=== PATIENT | female | born 1945 | race Caucasian/White ===

== ENCOUNTER → 2018-10-28 | Outpatient (CLI) | payer MEDICARE, OTHER ==
[~2018-10-28] MED LIST: BUPIVACAINE MPF 0.5% 30 ML VIAL. ONE; IOHEXOL 300 MG/ML 50 ML VIAL. ONE; LIDOCAINE 1% PF 30 ML VIAL. ONE; methylPREDNISolone ACETATE 80 MG/ML VIAL. ONE
== END | disposition home or self-care (01) ==
LOC: SURG 12:25
PROVIDERS: ATTEND Anesthesiology Pain Medicine
DX: M25.512 Pain in left shoulder (principal); M51.36 Other intervertebral disc degeneration, lumbar region; I10 Essential (primary) hypertension; M19.90 Unspecified osteoarthritis, unspecified site; F32.9 Major depressive disorder, single episode, unspecified; Z98.890 Other specified postprocedural states; Z79.82 Long term (current) use of aspirin; Z79.899 Other long term (current) drug therapy
CPT/HCPCS: 20610; 77002; J1040; J2001; J3490; Q9967; 20600; 20611

== ENCOUNTER → 2018-11-02 | Outpatient (CLI) | payer MEDICARE, OTHER ==
--- NOTE | 2018-11-02 15:11 | RAD ---
Examination: CT lumbar spine without contrast HISTORY: History of low back pain COMPARISON: None available TECHNIQUE: Axial CT images of the lumbar spine were performed without contrast and coronal sagittal reformats are performed Exposure: One or more of the following individualized dose reduction techniques were utilized for this examination: 1. Automated exposure control 2. Adjustment of the mA and/or kV according to patient size 3. Use of iterative reconstruction technique FINDINGS: 5 lumbar vertebrae are assumed. Lumbar vertebral body heights are maintained. Severe intervertebral disc height loss identified throughout the lumbar spine particularly at L3-L4, L4-L5 vertebral levels. Minimal 1 mm retrolisthesis of L3 on L4 and L5 on S1 identified. The bilateral facets are well aligned. L1-L2: Diffuse disc bulge causing mild spinal canal stenosis. Mild bilateral neural foraminal narrowing L2-L3: Diffuse disc bulge identified causing moderate spinal canal stenosis. Mild bilateral neural foraminal L3-L4: Diffuse disc bulge identified severe spinal canal stenosis identified. Moderate bilateral neural foraminal narrowing. L4-L5: Diffuse disc bulge with severe spinal canal stenosis. Moderate bilateral neural foraminal narrowing left greater than right L5-S1: Diffuse disc bulge identified causing mild spinal canal stenosis. Moderate bilateral neural foraminal narrowing. IMPRESSION: 1. Multilevel degenerative changes cervical spine , most at L3-L4, L4-L5 vertebral levels. MRI may be useful for further evaluation if clinically feasible. Electronically signed by: Kishan Frye MD (11/02/2018 3:08 PM) [place] [id number]
--- NOTE | 2018-11-02 16:36 | RAD ---
EXAM: Bilateral shoulders, 3 views. HISTORY: Bilateral shoulder pain. COMPARISON: None. FINDINGS: On the right, a small osteophyte indicates mild glenohumeral osteoarthritis. A degenerative cyst is suspected along the lesser tuberosity. Acromioclavicular osteoarthritis is mild to moderate for patient age. Inferiorly directed clavicular spurs measure up to 3 mm. No fractures are identified. Alignment is maintained. On the left, there is also mild glenohumeral osteoarthritis. Acromioclavicular osteoarthritis is minimal for patient age. A small inferiorly directed clavicular spur measures 3 mm. Alignment is maintained. No fractures are identified. There are atherosclerotic calcifications of the aorta. IMPRESSION: 1. Glenohumeral osteoarthritis is mild bilaterally. 2. Mild to moderate acromioclavicular osteoarthritis with small inferiorly directed spurs bilaterally. Electronically signed by: Shiraz Carreon MD (11/02/2018 4:33 PM) [facility]
== END | disposition home or self-care (01) ==
LOC: CT 11:04
PROVIDERS: ATTEND Anesthesiology Pain Medicine
DX: M19.012 Primary osteoarthritis, left shoulder (principal); M19.011 Primary osteoarthritis, right shoulder; M25.711 Osteophyte, right shoulder; M47.812 Spondylosis without myelopathy or radiculopathy, cervical region; M51.27 Other intervertebral disc displacement, lumbosacral region; M48.07 Spinal stenosis, lumbosacral region; I70.0 Atherosclerosis of aorta
CPT/HCPCS: 72131; 73030

== ENCOUNTER → 2018-11-25 | Outpatient (CLI) | payer MEDICARE, OTHER | END | disposition home or self-care (01) | LOC: SURG 08:13 | PROVIDERS: ATTEND Anesthesiology Pain Medicine | DX: M54.16 Radiculopathy, lumbar region (principal); G89.4 Chronic pain syndrome; M25.512 Pain in left shoulder; M51.36 Other intervertebral disc degeneration, lumbar region; I10 Essential (primary) hypertension; M19.90 Unspecified osteoarthritis, unspecified site; Z79.84 Long term (current) use of oral hypoglycemic drugs; Z79.899 Other long term (current) drug therapy | CPT/HCPCS: 99214 ==